=== PATIENT | male | born 1975 | race African-American/Black ===

== ENCOUNTER 2025-03-30 19:33 | Emergency (ER) | payer OTHER, SELFPAY ==
[2025-03-30 19:59] VITALS: BP 150/99; PULSE 82; RESP 17; TEMP 36.7; O2SAT 99; BMI 28.5
--- NOTE | 2025-03-31 02:01 | ED_ITS ---
HPI - Back Pain/Injury General Chief Complaint: Back Pain/Injury Stated Complaint: back pain, weakness Time Seen by Provider: 03/31/25 01:11 Source: patient History of Present Illness HPI Narrative: 50-year-old male with history of remote kidney stones, complains of right flank pain, now with some right testicular discomfort. No injury or trauma new activities. No fevers or chills. No painful or frequent urination. Denies chest pain or shortness of breath. Denies nausea or vomiting or diarrhea. No black or red stools. No history of colitis or diverticulitis recalled. Related Data Allergies Allergy/AdvReac Type Severity Reaction Status Date / Time No Known Allergies Allergy Verified 03/30/25 20:03 Patient History Social History Smoking Status: Current every day smoker Smoking Status: Current every day smoker tobacco type: cigarettes Exam Narrative Exam Narrative: GENERAL: Well-developed patient, in mild distress. HEAD: Atraumatic. Normocephalic. EYES: Pupils equal round and reactive. Extraocular motions intact. No scleral icterus. No injection or drainage. ENT: Nose without bleeding, purulent drainage. Throat without erythema, tonsillar hypertrophy or exudate. Airway patent. NECK: Trachea midline. Non tender CARDIOVASCULAR: Regular rate and rhythm without murmurs, gallops, or rubs. RESPIRATORY: Clear to auscultation. Breath sounds equal bilaterally. No wheezes, rales, or rhonchi. GASTROINTESTINAL: Abdomen soft, non-tender, nondistended. EXTREMITIES: No edema or joint tenderness. BACK: Nontender without deformity or crepitance. No flank tenderness. NEURO: AOx3. Motor functions grossly nonfocal. SKIN: No rash or erythema of visible areas Initial Vital Signs Initial Vital Signs: Vital Signs Temperature 98.0 F 03/30/25 19:59 Pulse Rate 82 03/30/25 19:59 Respiratory Rate 17 03/30/25 19:59 Blood Pressure 150/99 H 03/30/25 19:59 Pulse Oximetry 99 03/30/25 19:59 Oxygen Delivery Method Room Air 03/30/25 19:59 Course Orders Ordered: ED Orders 03/31/25 02:33 CT abdomen pelvis wo con Stat 03/31/25 02:43 Complete Blood Count AUTO DIFF Stat Comprehensive Metabolic Panel Stat Lipase Stat Discontinued Medications Hydromorphone HCl (Hydromorphone Hcl 0.5 Mg/0.5 Ml Syringe) 0.5 mg IV NOW ONE Stop: 03/31/25 02:34 Last Admin: 03/31/25 02:46 Dose: 0.5 mg Documented By: JAQUELINE Ketorolac Tromethamine (Ketorolac 30 Mg/Ml Vial) 15 mg IV NOW ONE Stop: 03/31/25 02:34 Last Admin: 03/31/25 02:46 Dose: 15 mg Documented By: JAQUELINE Ondansetron HCl (Ondansetron 4 Mg/2 Ml Inj) 4 mg IV NOW ONE Stop: 03/31/25 02:34 Last Admin: 03/31/25 02:46 Dose: 4 mg Documented By: JAQUELINE Tramadol HCl (Tramadol 50 Mg Prepack) 1 bottle MISC DIRECTED ONE Stop: 03/31/25 04:42 Last Admin: 03/31/25 04:50 Dose: 1 bottle Documented By: MAGUI Vital Signs Vital signs: Vital Signs - 8 hr 03/31/25 03:44 03/31/25 03:45 03/31/25 03:45 Pulse Rate 66 85 Respiratory Rate 17 Blood Pressure 143/84 H Pulse Oximetry 98 99 Oxygen Delivery Method Room Air 03/31/25 04:00 03/31/25 04:30 03/31/25 04:52 Pulse Rate 66 75 71 Respiratory Rate Blood Pressure Pulse Oximetry 98 99 99 Oxygen Delivery Method Room Air 03/31/25 04:52 03/31/25 04:58 Pulse Rate 79 Respiratory Rate 17 Blood Pressure 156/95 H 156/95 H Pulse Oximetry 99 Oxygen Delivery Method Room Air MDM - Back Pain/Injury Lab Data Attestation: I reviewed the patient's lab results. Lab results narrative: White blood cell count 7800. Hemoglobin 12.6. Platelets adequate. BMP unremarkable. Liver functions and lipase normal. Urine dip negative. 03/31/25 02:43 03/31/25 02:43 Labs: Lab Results 03/31/25 Range/Units 02:43 WBC 7.8 (4.5-11.0) X10^3/uL RBC 5.52 (4.5-5.9) X10^6/uL Hgb 12.6 L (13.5-17.5) g/dL Hct 39.0 L (41-53) % MCV 70.7 L (80-100) fL MCH 22.8 L (26-34) PG MCHC 32.3 (30-36) % RDW 15.5 H (11.6-14.8) % Plt Count 273 (150-400) X10^3/uL Neut % (Auto) 40.0 L (50-75) % Lymph % (Auto) 48.5 H (25-40) % [place] % (Auto) 7.1 (3-14) % Eos % (Auto) 3.8 (2-4) % Baso % (Auto) 0.6 (0-2) % Neut # (Auto) 3100 (3930-3086) /uL Lymph # (Auto) 3800 (5919-4442) /uL [place] # (Auto) 600 (0-900) /uL Eos # (Auto) 300 (0-450) /uL Baso # (Auto) 0 (0-100) /uL Sodium 138 (137-145) mmol/L Potassium 4.1 (3.4-5.1) mmol/L Chloride 108 H (98-107) mmol/L Carbon Dioxide 24 (22-32) mmol/L BUN 12 (9-20) mg/dL Creatinine 1.11 (0.66-1.25) mg/dL Estimated GFR > 60 (>60) mL/min BUN/Creatinine Ratio 10.8 (6-22) Glucose 94 (70-99) mg/dL Calcium 9.2 (8.4-10.2) mg/dL Total Bilirubin 0.7 (0.2-1.3) mg/dL AST 29 (17-59) IU/L ALT 42 (<50) IU/L Alkaline Phosphatase 47 (38-126) U/L Total Protein 7.1 (6.3-8.2) g/dL Albumin 4.3 (3.5-5.0) g/dL Globulin 2.8 (1.7-4.1) g/dL Albumin/Globulin Ratio 1.5 (1.0-2.8) Lipase 61 (23-300) U/L Urine Dip Bedside Urine Glucose Negative Bedside Urine Bilirubin - Negative Bedside Urine Ketone - Negative Urine Specific [place] 1.020 Bedside Urine Occult Blood - Negative Bedside Urine pH 6.0 Bedside Urine Protein - Negative Bedside Urine Urobilinogen - Negative Bedside Urine Nitrite - Negative Bedside Urine Leukocytes - Negative Esterase MDM Narrative Medical decision making narrative: 50-year-old male with right flank pain, now with right testicular discomfort, history of kidney stones. Afebrile, sirs screen negative. No tenderness CVA or anterior abdominal exam. Labs pending. CT abdomen and pelvis noncontrast scan ordered. Keep NPO for now. DDx consider right ureteral stone, consider right text testicular pathology with radiation cephalad, consider right inguinal hernia, other. Lab data: White blood cell count 7800. Hemoglobin 12.6. Platelets adequate. BMP unremarkable. Liver functions and lipase normal. Urine dip negative. CT abdomen and pelvis noncontrast. Impressions: ?No evidence of colitis diverticulitis bowel obstruction or obstructive uropathy. Bladder wall thickening possibly related to underdistention however cystitis or infection could also have this appearance. Right inguinal hernia containing fat.? See tele radiology report. Urine dip negative. No obvious cystitis by laboratory testing. Right inguinal hernia might be accounting for his right groin/scrotal discomfort. He feels better, like to go home. No further evaluation for now here in the emergency department. Consider general surgery consultation for elective inguinal hernia repair. Contact information given for General surgery office. Discharged home with family. Return precautions discussed. Discharge Plan Departure Patient Disposition: Home Clinical Impression: Abdominal pain, Inguinal hernia, History of renal stone Activity Restrictions/Additional Instructions: Right-sided flank pain, history of kidney stones, some discomfort right testicle without direct trauma known. CT abdomen and pelvis imaging did not confirm presence of ureteral stone at this time. Did demonstrate right inguinal hernia. It is possible the ileal inguinal nerve might be irritated by the right inguinal hernia, to cause discomfort in the scrotum on that side. Urinalysis dip test did not suggest infection of the urine at this time. Consider general surgery consultation as an outpatient, for elective inguinal hernia repair options. No bowel obstruction changes or acute bowel inflammatory changes described at this time. Take Tylenol and or Motrin as needed for pain control. Home pack tramadol to use if needed. Follow up with General surgery, clinic contact information provided. Return earlier to this/nearest emergency department for any change worsening symptoms or any concerns prior. Referrals: Adam Metz MD [Physician, General Surgery] Stand Alone Forms: Patient Portal/API
--- NOTE | 2025-03-31 02:33 | DI.CT.S_ITS ---
PROCEDURE: CT ABDOMEN PELVIS WO CON INDICATIONS: R back pain, testicle pain, ?ureteral stone TECHNIQUE: Axial sections were acquired from the lung bases to the pubic symphysis. Coronal and sagittal reformats were performed. For radiation dose reduction, the following was used: automated exposure control, adjustment of mA and/or kV according to patient size. COMPARISON: None. FINDINGS: Image quality: Diagnostic. Lower Chest: Bibasilar dependent atelectasis is seen. Heart size is normal, no pericardial effusion. Small hiatal hernia. URINARY: Right Kidney: No stones or hydronephrosis. Right Ureter: No hydroureter. Left Kidney: No stones or hydronephrosis. Left Ureter: No hydroureter. Bladder: Diffuse bladder wall thickening with perivesicular fat stranding. No calcified bladder stones. ABDOMEN: Liver: No contour-deforming solid mass. Gallbladder: Calcified stone is seen in dependent portion of gallbladder lumen. No significant gallbladder wall thickening. Biliary ducts: No biliary dilation. Pancreas: No ductal dilation. Spleen: Size is within normal limits. Adrenal Glands: No adrenal nodules. Stomach and Bowel: Normal colonic caliber, without significant wall thickening. Appendix is surgically absent. Mild colonic diverticulosis without CT evidence of acute diverticulitis. Peritoneum: No abnormal intraperitoneal fluid. No free air. Ventral Wall: No hernia. Abdominal Nodes: No enlarged retroperitoneal or mesenteric lymph nodes. Vessels: Aorta and inferior vena cava are normal in size. PELVIS: Pelvic Organs: Mildly enlarged prostate gland is seen. Pelvic Nodes: Unremarkable. Miscellaneous: Small right inguinal hernia containing fat only. Bones: No aggressive appearing bony lesions. IMPRESSION: 1. No obstructing stones or hydronephrosis. No hydroureter. Diffuse bladder wall thickening concerning for cystitis. No calcified bladder stones. 2. No bowel obstruction or abnormal bowel wall thickening. No abscess collection. This colonic diverticulosis without CT evidence of acute diverticulitis. Suggestion of prior appendectomy. No free fluid or free air. 3. Cholelithiasis without CT evidence of acute cholecystitis. No significant discrepancies from preliminary reading. Dictated by: Martín Zimmerman M.D. on 03/31/2025 at 9:12 Approved by: Martín Zimmerman M.D. on 03/31/2025 at 9:14
[2025-03-31] MEDS: ONDANSETRON 4 MG/2 ML INJ IV (02:46)
[2025-03-31] MEDS: KETOROLAC 30 MG/ML VIAL 15 MG IV (02:46)
[2025-03-31 02:57] LABS: Add Manual Diff / Slide Review NO; Hematocrit 39.0 % (41-53); Hemoglobin 12.6 g/dL (13.5-17.5); Lymphocytes Absolute Auto 3800 /uL (1100-4500); Mean Corpuscular HGB Conc 32.3 % (30-36); Mean Corpuscular Hemoglobin 22.8 PG (26-34); Mean Corpuscular Volume 70.7 fL (80-100); Platelet Count 273 X10^3/uL (150-400)
[2025-03-31 03:09] LABS: Alanine Aminotransferase 42 IU/L (<50); Albumin 4.3 g/dL (3.5-5.0); Albumin Globulin Ratio 1.5 (1.0-2.8); Alkaline Phosphatase 47 U/L (38-126); Blood Urea Nitrogen 12 mg/dL (9-20); Calcium 9.2 mg/dL (8.4-10.2); Carbon Dioxide 24 mmol/L (22-32); Chloride 108 mmol/L (98-107); Estimated Glomerular Filt Rate > 60 mL/min (>60); Globulin 2.8 g/dL (1.7-4.1); Glucose 94 mg/dL (70-99); HEMOLYSIS < 15 (0-50); Lipase 61 U/L (23-300); Potassium 4.1 mmol/L (3.4-5.1); Sodium 138 mmol/L (137-145); Total Protein 7.1 g/dL (6.3-8.2)
[2025-03-31 03:44] VITALS: PULSE 66; O2SAT 98
[2025-03-31 03:45] VITALS: BP 143/84; PULSE 85; RESP 17; O2SAT 99
[2025-03-31 04:00] VITALS: PULSE 66; O2SAT 98
[2025-03-31 04:30] VITALS: PULSE 75; O2SAT 99
[2025-03-31] MEDS: TRAMADOL 50 MG PREPACK 1 BOTTLE MISC (04:50)
[2025-03-31 04:52] VITALS: BP 156/95; PULSE 71; O2SAT 99
[2025-03-31 04:58] VITALS: BP 156/95; PULSE 79; RESP 17; O2SAT 99
== END 2025-03-31 04:59 | disposition home or self-care (01) ==
PROVIDERS: Emergency Provider Emergency Medicine
DX: K40.90 Unilateral inguinal hernia, without obstruction or gangrene, not specified as recurrent (principal); R10.9 Unspecified abdominal pain; N50.811 Right testicular pain; Z87.442 Personal history of urinary calculi
CPT/HCPCS: 36415; 74176; 80053; 81003; 83690; 85025; 96374; 96375; 99284; J1171; J1885; J2405